=== PATIENT | female | born 1970 | race Caucasian/White ===

== ENCOUNTER 2021-05-20 13:13 | Emergency (ER) | payer BC, OTHER ==
[2021-05-20 14:02] LABS: #Basophils 0.1 thou/uL (0.0-0.2); #Monocytes 0.4 thou/uL (0.11-0.59); #Neutrophils 6.3 thou/uL (1.40-6.50); %Basophils 0.8 % (0.0-1.0); %Eosinophils 0.2 % (0.0-10.0); %Lymphocytes 12.6 % (21.0-51.0); %Monocytes 5.4 % (0.0-10.0); Mean Corpuscular HGB CONC 34.7 g/dL (32.0-36.0); Mean Corpuscular Volume 95.1 fL (78.0-98.0); Platelet Count 226 thou/uL (130-400); RBC Distribution Width 11.8 % (11.5-14.5); Red Blood Cell (RBC) Count 4.54 mill/uL (4.20-5.40); White Blood Cell (WBC) Count 7.7 thou/uL (4.8-10.8)
[2021-05-20] MEDS ORDERED: Ondansetron PF 4 MG/2 ML Vial ONE (14:05)
[2021-05-20 14:34] LABS: ALT (SGPT) 139 U/L (8-55); AST (SGOT) 144 U/L (5-34); Albumin 5.1 g/dL (3.5-5.0); Alkaline Phosphatase 75 U/L (40-110); Anion Gap 17 mmol/L (10-20); BUN (Urea Nitrogen) 15 mg/dL (9.8-20.1); Bilirubin, Total 0.5 mg/dL (0.2-1.2); Calc. Creatinine Clearance 0 mL/min (70-130); Calcium 10.7 mg/dL (7.8-10.44); Carbon Dioxide 25 mmol/L (22-29); Chloride 99 mmol/L (98-107); Globulin 3.8 g/dL (2.4-3.5); Glucose 136 mg/dL (70-105); Lipase 42 U/L (8-78); Potassium 3.8 mmol/L (3.5-5.1); Protein, Total 8.9 g/dL (6.0-8.3); Sodium 137 mmol/L (136-145)
== END 2021-05-20 15:30 | disposition home or self-care (01) ==
LOC: ERS 13:13
DX: R00.2 Palpitations (principal); R53.1 Weakness; Z87.891 Personal history of nicotine dependence
CPT/HCPCS: 36415; 71045; 80053; 83690; 84443; 84484; 85025; 85379; 96374; J2405

== ENCOUNTER 2021-10-25 12:21 | Inpatient (IN) | payer BC, OTHER ==
[2021-10-25 12:38] LABS: #Lymphocytes 2.6 thou/uL (1.20-3.40); #Monocytes 0.9 thou/uL (0.11-0.59); #Neutrophils 9.6 thou/uL (1.40-6.50); %Basophils 0.1 % (0.0-1.0); %Eosinophils 0.2 % (0.0-10.0); %Lymphocytes 19.7 % (21.0-51.0); %Monocytes 6.7 % (0.0-10.0); %Neutrophils 73.4 % (42.0-75.0); Hemoglobin 14.3 g/dL (12.0-16.0); Mean Corpuscular HGB CONC 32.1 g/dL (32.0-36.0); Mean Corpuscular Hemoglobin 32.3 pg (27.0-31.0); Mean Platelet Volume 6.8 fL (7.4-10.4); Platelet Count 165 thou/uL (130-400); RBC Distribution Width 12.5 % (11.5-14.5); Red Blood Cell (RBC) Count 4.43 mill/uL (4.20-5.40)
[2021-10-25] MEDS ORDERED: Ondansetron PF 4 MG/2 ML Vial ONE ×2 (12:49→13:14)
[2021-10-25] MEDS ORDERED: Lidocaine 4% Cream 5 GM TUBE w/ Tegaderm ONE (12:55)
[2021-10-25 13:07] LABS: Bacteria/HPF None Seen HPF (None Seen); Bilirubin Negative (Negative); Blood, Urine 3+ (Negative); Clarity Clear (Clear); Glucose, Urine (Dipstick) Normal (Negative); Ketone, Urine 10 mg/dL (Negative); Leukocyte Negative Leu/uL (Negative); Nitrite Negative (Negative); Protein, Urine (Dipstick) 30 mg/dL (Neg-Trace); RBC/HPF 0-3 HPF (0-3); Specific Gravity, Urine 1.012 (1.002-1.036); Squamous Epithelial None Seen HPF (0-3); Urobilinogen Normal mg/dL (Less than 2); WBC/HPF 0-3 HPF (0-3); pH, Urine 6.5 (5.0-9.0)
[2021-10-25 13:11] LABS: ALT (SGPT) 131 U/L (8-55); AST (SGOT) 176 U/L (5-34); Alkaline Phosphatase 78 U/L (40-110); Anion Gap 29 mmol/L (10-20); BUN (Urea Nitrogen) 12 mg/dL (9.8-20.1); Bilirubin, Total 0.5 mg/dL (0.2-1.2); Calc. Creatinine Clearance 0 mL/min (70-130); Calcium 9.5 mg/dL (7.8-10.44); Carbon Dioxide 17 mmol/L (22-29); Chloride 96 mmol/L (98-107); Globulin 3.5 g/dL (2.4-3.5); Glucose 126 mg/dL (70-105); Potassium 3.6 mmol/L (3.5-5.1); Protein, Total 8.5 g/dL (6.0-8.3); Sodium 138 mmol/L (136-145)
[2021-10-25 13:16] LABS: CK (CPK) 841 U/L (29-168); Magnesium 1.5 mg/dL (1.6-2.6)
[2021-10-25 13:19] LABS: BHCG - Serum Negative (NEGATIVE); Pregs Control Background? CLEAR/WHITE (CLR/WHITE); Pregs Control Bar Appear? YES (CONTROL BAR)
[2021-10-25 13:54] LABS: Thyroid Stimulating Hormone 0.8689 uIU/mL (0.35-4.94)
[2021-10-25] MEDS ORDERED: diphenhydrAMINE 12.5 MG/5 ML UDCUP ONE (15:07)
[2021-10-25] MEDS ORDERED: Metoclopramide HCl 10 MG/2 ML VIAL ONE (15:07)
[2021-10-25] MEDS ORDERED: diphenhydrAMINE 50 MG/ML VIAL ONE (15:09)
[2021-10-25] MEDS ORDERED: levETIRAcetam 500 MG/5 ML VIAL SLOW IVP SCH ×2 (15:45)
[2021-10-25] MEDS ORDERED: HYDROcodone/Acetaminophen 5/325 mg Tablet PO PRN (15:55)
[2021-10-25 15:58] LABS: Amphetamine Not Detected (NotDetected); Barbiturates Screen Not Detected (NotDetected); Benzodiazepine Screen Not Detected (NotDetected); Cocaine Metabolite Screen Not Detected (NotDetected); Methadone Not Detected (NotDetected); Methamphetamine Not Detected (NotDetected); Opiate Screen Not Detected (NotDetected); Oxycodone Screen Not Detected (NotDetected); Phencyclidine (PCP) Not Detected (NotDetected); THC/Cannabinoid Screen Not Detected (NotDetected); Tricyclic Screen Not Detected (NotDetected)
[2021-10-25] MEDS ORDERED: Lorazepam 2 MG/ML VIAL SLOW IVP PRN (16:15)
[2021-10-25 17:28] LABS: Lactic Acid 0.8 mmol/L (0.5-2.2)
[2021-10-25] MEDS: Dextrose 5 % And 0.9 % NaCl 1,000 ML IV SCH (17:31)
[2021-10-25 18:13] VITALS: BMI 20.8
[2021-10-25] MEDS ORDERED: clonazePAM 0.5 MG TAB PO PRN (18:19)
[2021-10-25] MEDS ORDERED: Magnesium 2 GM/50 ML(in water) 2 GM in Premix Bag 1 BAG IVPB SCH (18:30)
[2021-10-25] MEDS: Morphine 2 MG/ML VIAL SLOW IVP PRN (20:53)
[2021-10-25] MEDS: levETIRAcetam 500 MG/5 ML VIAL SLOW IVP SCH (21:45)
[2021-10-26 00:51] LABS: SARS-CoV-2 PCR by NAA Not Detected (NotDetected)
[2021-10-26] MEDS: Dextrose 5 % And 0.9 % NaCl 1,000 ML IV SCH ×2 (03:43→14:27)
[2021-10-26] MEDS: Morphine 2 MG/ML VIAL SLOW IVP PRN ×2 (05:22→15:48)
[2021-10-26 05:30] LABS: #Lymphocytes 0.9 thou/uL (1.20-3.40); #Monocytes 0.5 thou/uL (0.11-0.59); #Neutrophils 7.9 thou/uL (1.40-6.50); %Basophils 0.1 % (0.0-1.0); %Eosinophils 0.1 % (0.0-10.0); %Lymphocytes 9.3 % (21.0-51.0); %Monocytes 5.5 % (0.0-10.0); Hemoglobin 12.5 g/dL (12.0-16.0); Mean Corpuscular HGB CONC 33.9 g/dL (32.0-36.0); Mean Corpuscular Hemoglobin 33.1 pg (27.0-31.0); Mean Corpuscular Volume 97.8 fL (78.0-98.0); Mean Platelet Volume 6.8 fL (7.4-10.4); Platelet Count 129 thou/uL (130-400); RBC Distribution Width 12.6 % (11.5-14.5); Red Blood Cell (RBC) Count 3.77 mill/uL (4.20-5.40); White Blood Cell (WBC) Count 9.3 thou/uL (4.8-10.8)
[2021-10-26 05:46] LABS: Anion Gap 13 mmol/L (10-20); BUN (Urea Nitrogen) 7 mg/dL (9.8-20.1); Calc. Creatinine Clearance 99 mL/min (70-130); Calcium 8.1 mg/dL (7.8-10.44); Carbon Dioxide 23 mmol/L (22-29); Chloride 104 mmol/L (98-107); Glucose 110 mg/dL (70-105); Magnesium 2.2 mg/dL (1.6-2.6); Sodium 137 mmol/L (136-145)
[2021-10-26 05:55] LABS: Potassium 2.8 mmol/L (3.5-5.1)
[2021-10-26] MEDS ORDERED: Electrolyte Replacement Protocol FS PRN (06:15)
[2021-10-26 07:24] LABS: Magnesium 2.1 mg/dL (1.6-2.6)
[2021-10-26] MEDS: Potassium Chloride 20 MEQ TAB PO SCH ×2 (08:47→11:55)
[2021-10-26] MEDS: levETIRAcetam 500 MG/5 ML VIAL SLOW IVP SCH (08:48)
[2021-10-26] MEDS ORDERED: PRASTERONE 25 MG PO SCH (09:00)
[2021-10-26] MEDS ORDERED: clonazePAM 0.5 MG TAB PO SCH (09:00)
[2021-10-26] MEDS ORDERED: Folic Acid 1 MG TAB PO SCH (09:00)
[2021-10-26 15:44] VITALS: BP 108/63; TEMP 98.2
[2021-10-26 17:14] LABS: Potassium 4.2 mmol/L (3.5-5.1)
[2021-10-27] MEDS ORDERED: Venlafaxine XR 37.5 MG CAP PO SCH (09:00)
[2021-10-27] MEDS ORDERED: Progesterone,Micronized 100 MG CAP PO SCH (09:00)
== END 2021-10-26 19:33 | disposition home or self-care (01) | DRG 101 ==
LOC: ERS 12:21 → ERHOLD 15:32 → NEURO 16:54 → OBSVTOIN 10-26 12:39
PROVIDERS: ADMIT Emergency Medicine; ATTEND Emergency Medicine
DX: R56.1 Post traumatic seizures (principal); E87.2 Acidosis; R55 Syncope and collapse; Z20.822 Contact with and (suspected) exposure to COVID-19; G47.00 Insomnia, unspecified; F41.9 Anxiety disorder, unspecified; I49.3 Ventricular premature depolarization; E87.6 Hypokalemia; G93.89 Other specified disorders of brain; Z88.5 Allergy status to narcotic agent; Z87.891 Personal history of nicotine dependence; Z79.899 Other long term (current) drug therapy
CPT/HCPCS: 36415; 51701; 70450; 70551; 70552; 71045; 72125; 80048; 80053; 80306; 81003; 81015; 82533; 82550; 83605; 83735; 83880; 84146; 84443; 84484; 84703; 85025; 93005; 93306; 95712; 95819; 95957; 96361; 96374; 96375; 96376; G0378; J1200; J1953; J2270; J2405; J2765; J3475; J7042; Q0163; U0003; U0005

== ENCOUNTER 2022-08-01 11:58 | Outpatient (CLI) | payer BC, OTHER | END 2022-08-01 11:59 | disposition home or self-care (01) | LOC: BICRAD 11:58 | PROVIDERS: ATTEND Neurological Surgery | DX: M48.56XA Collapsed vertebra, not elsewhere classified, lumbar region, initial encounter for fracture (principal); M54.50 Low back pain, unspecified; M43.8X6 Other specified deforming dorsopathies, lumbar region | CPT/HCPCS: 72100 ==

== ENCOUNTER 2022-08-28 12:22 | Outpatient (CLI) | payer BC, OTHER | END 2022-08-28 12:23 | disposition home or self-care (01) | LOC: SCSRAD 12:22 | PROVIDERS: ATTEND Neurological Surgery | DX: M48.56XA Collapsed vertebra, not elsewhere classified, lumbar region, initial encounter for fracture (principal); M43.8X6 Other specified deforming dorsopathies, lumbar region | CPT/HCPCS: 72100 ==

== ENCOUNTER 2022-09-20 15:54 | Outpatient (CLI) | payer BC, OTHER | END 2022-09-20 15:55 | disposition home or self-care (01) | LOC: ULT 15:54 | PROVIDERS: ATTEND Otolaryngology Otolaryngic Allergy | DX: E04.1 Nontoxic single thyroid nodule (principal) | CPT/HCPCS: 76536 ==

== ENCOUNTER 2022-10-08 10:53 | Inpatient (IN) | payer BC, OTHER ==
[2022-10-08 11:44] LABS: Hemoglobin 15.2 g/dL (12.0-16.0); Mean Corpuscular HGB CONC 35.3 g/dL (32.0-36.0); Mean Corpuscular Hemoglobin 32.6 pg (27.0-31.0); Mean Corpuscular Volume 92.3 fl (78.0-98.0); Mean Platelet Volume 6.1 fL (7.4-10.4); Platelet Count 333 10x3/uL (130-400); Red Blood Cell (RBC) Count 4.65 mill/uL (4.20-5.40); White Blood Cell (WBC) Count 7.1 10x3/uL (4.8-10.8)
[2022-10-08] MEDS ORDERED: fentaNYL 50 mcg/mL 1 mL Vial ONE (11:49)
[2022-10-08] MEDS ORDERED: Ketorolac Tromethamine 30 MG/ML VIAL ONE (11:49)
[2022-10-08 11:58] LABS: ALT (SGPT) 23 U/L (8-55); AST (SGOT) 39 U/L (5-34); Albumin 4.5 g/dL (3.5-5.0); Alkaline Phosphatase 61 U/L (40-110); Anion Gap 17 mmol/L (10-20); BUN (Urea Nitrogen) 11 mg/dL (9.8-20.1); Bilirubin, Total 0.3 mg/dL (0.2-1.2); Calc. Creatinine Clearance 0 mL/min (70-130); Calcium 8.8 mg/dL (7.8-10.44); Carbon Dioxide 23 mmol/L (22-29); Chloride 105 mmol/L (98-107); Estimated GFR 104; Globulin 3.3 g/dL (2.4-3.5); Glucose 103 mg/dL (70-105); Potassium 4.3 mmol/L (3.5-5.1); Protein, Total 7.8 g/dL (6.0-8.3); Sodium 141 mmol/L (136-145)
[2022-10-08 12:16] LABS: Band 3 % (5-11); Lymphocytes 53 % (21-51); MDiff Complete? YES; Monocytes 3 % (0-10); Neutrophil 41 % (42-75); Platelet Morphology Comment Appears Adequate; RBC Morphology Normal
[2022-10-08 13:21] LABS: Bacteria/HPF 4+ HPF (None Seen); Bilirubin Negative (Negative); Blood, Urine Negative (Negative); Clarity Turbid (Clear); Glucose, Urine (Dipstick) Normal (Negative); Ketone, Urine Negative (Negative); Leukocyte 25 Leu/uL (Negative); Nitrite Negative (Negative); Protein, Urine (Dipstick) 10 mg/dL (Neg-Trace); RBC/HPF 0-3 HPF (0-3); Specific Gravity, Urine 1.012 (1.002-1.036); Squamous Epithelial 0-3 HPF (0-3); Urobilinogen Normal mg/dL (Less than 2)
[2022-10-08] MEDS ORDERED: Promethazine HCl 25 MG in Sodium Chloride 0.9% 50 ML IVPB SCH (15:00)
[2022-10-08 15:09] LABS: CK (CPK) 112 U/L (29-168); Lipase 16 U/L (8-78)
[2022-10-08] MEDS ORDERED: Iopamidol-370 76% 500 ML MDV (1 ML CHARGE) ONE (15:48)
[2022-10-08] MEDS: Acetaminophen 325 MG TAB PO PRN ×2 (17:46→20:51)
[2022-10-08] MEDS ORDERED: clonazePAM 0.5 MG TAB PO SCH (21:00)
[2022-10-08 21:14] VITALS: BMI 17.0
[2022-10-08] MEDS ORDERED: Ondansetron PF 4 MG/2 ML Vial IVP PRN (21:44)
[2022-10-08] MEDS ORDERED: Ondansetron ODT 4 MG TAB PO PRN (21:44)
[2022-10-08] MEDS ORDERED: Promethazine HCl 12.5 MG in Sodium Chloride 0.9% 50 ML IVPB SCH (22:15)
[2022-10-08] MEDS: Sodium Chloride 0.9% 1,000 ML IV SCH (22:46)
[2022-10-09] MEDS: Acetaminophen 650 MG Suppository PR PRN ×4 (01:30→15:05)
[2022-10-09 05:36] LABS: #Lymphocytes 1.8 thou/uL (1.20-3.40); #Monocytes 0.6 thou/uL (0.11-0.59); #Neutrophils 5.9 thou/uL (1.40-6.50); %Basophils 0.3 % (0.0-1.0); %Eosinophils 0.5 % (0.0-10.0); %Lymphocytes 21.7 % (21.0-51.0); %Monocytes 7.3 % (0.0-10.0); %Neutrophils 70.2 % (42.0-75.0); Hemoglobin 12.4 g/dL (12.0-16.0); Mean Corpuscular Hemoglobin 31.6 pg (27.0-31.0); Mean Platelet Volume 6.3 fL (7.4-10.4); Platelet Count 252 10x3/uL (130-400); RBC Distribution Width 11.9 % (11.5-14.5); Red Blood Cell (RBC) Count 3.93 mill/uL (4.20-5.40); White Blood Cell (WBC) Count 8.4 10x3/uL (4.8-10.8)
[2022-10-09 06:00] LABS: Anion Gap 15 mmol/L (10-20); BUN (Urea Nitrogen) 11 mg/dL (9.8-20.1); Calc. Creatinine Clearance 69 mL/min (70-130); Carbon Dioxide 24 mmol/L (22-29); Chloride 105 mmol/L (98-107); Estimated GFR 104; Glucose 103 mg/dL (70-105); Potassium 3.5 mmol/L (3.5-5.1); Sodium 140 mmol/L (136-145)
[2022-10-09] MEDS ORDERED: clonazePAM 0.5 MG TAB PO SCH (09:00)
[2022-10-09] MEDS: Venlafaxine XR 37.5 MG CAP PO SCH ×2 (09:18→09:20)
[2022-10-09] MEDS: Acetaminophen 325 MG TAB PO PRN (09:24)
[2022-10-09] MEDS: Sodium Chloride 0.9% 1,000 ML IV SCH (10:54)
[2022-10-09 15:54] VITALS: BP 112/72; TEMP 98.5
== END 2022-10-09 17:45 | disposition home or self-care (01) | DRG 86 ==
LOC: SUATTDRO 10:53 → ERS 10:53 → NEURO 15:02
PROVIDERS: ADMIT Internal Medicine; ATTEND Internal Medicine
DX: S06.6X1A Traumatic subarachnoid hemorrhage with loss of consciousness of 30 minutes or less, initial encounter (principal); M48.54XA Collapsed vertebra, not elsewhere classified, thoracic region, initial encounter for fracture; S02.0XXA Fracture of vault of skull, initial encounter for closed fracture; W19.XXXA Unspecified fall, initial encounter; S00.03XA Contusion of scalp, initial encounter; F41.9 Anxiety disorder, unspecified; E78.5 Hyperlipidemia, unspecified; F51.04 Psychophysiologic insomnia; Z88.5 Allergy status to narcotic agent; Z88.8 Allergy status to other drugs, medicaments and biological substances; Z79.899 Other long term (current) drug therapy; Y92.009 Unspecified place in unspecified non-institutional (private) residence as the place of occurrence of the external cause
CPT/HCPCS: 36416; 70450; 71045; 71275; 72125; 80048; 80053; 81003; 81015; 82550; 83690; 84146; 84484; 85025; 85379; 93005; 93306; 93880; J1885; J2405; J2550; J3010; J7050; Q0162; Q9967

== ENCOUNTER 2022-10-26 08:26 | Outpatient (CLI) | payer BC, OTHER | END 2022-10-26 08:27 | disposition home or self-care (01) | LOC: SCSCT 08:26 | PROVIDERS: ATTEND Neurological Surgery | DX: S06.6X0D Traumatic subarachnoid hemorrhage without loss of consciousness, subsequent encounter (principal); S22.010D Wedge compression fracture of first thoracic vertebra, subsequent encounter for fracture with routine healing; I67.82 Cerebral ischemia; G31.9 Degenerative disease of nervous system, unspecified; S02.91XD Unspecified fracture of skull, subsequent encounter for fracture with routine healing; S32.029D Unspecified fracture of second lumbar vertebra, subsequent encounter for fracture with routine healing | CPT/HCPCS: 70450; 72070 ==

== ENCOUNTER 2023-06-28 00:27 | Emergency (ER) | payer BC, OTHER ==
[2023-06-28 02:16] LABS: #Monocytes 0.6 thou/uL (0.11-0.59); #Neutrophils 4.5 thou/uL (1.40-6.50); %Basophils 0.2 % (0.0-1.0); %Lymphocytes 15.5 % (21.0-51.0); %Monocytes 9.1 % (0.0-10.0); %Neutrophils 74.9 % (42.0-75.0); Hematocrit 38.3 % (36.0-47.0); Hemoglobin 13.6 g/dL (12.0-16.0); Mean Corpuscular HGB CONC 35.5 g/dL (32.0-36.0); Mean Corpuscular Hemoglobin 31.2 pg (27.0-31.0); Mean Corpuscular Volume 87.8 fl (78.0-98.0); Mean Platelet Volume 8.6 fL (7.4-10.4); Platelet Count 156 10x3/uL (130-400); RBC Distribution Width 13.1 % (11.5-14.5); Red Blood Cell (RBC) Count 4.36 mill/uL (4.20-5.40); White Blood Cell (WBC) Count 6.1 10x3/uL (4.8-10.8)
[2023-06-28 02:43] LABS: Troponin I Less than 0.010 ng/mL (< 0.028)
[2023-06-28 05:03] LABS: ALT (SGPT) 149 U/L (8-55); AST (SGOT) 180 U/L (5-34); Albumin 4.2 g/dL (3.5-5.0); Alkaline Phosphatase 76 U/L (40-110); Anion Gap 19 mmol/L (10-20); BUN (Urea Nitrogen) 7 mg/dL (9.8-20.1); Bilirubin, Total 0.4 mg/dL (0.2-1.2); Calc. Creatinine Clearance 0 mL/min (70-130); Calcium 8.2 mg/dL (7.8-10.44); Carbon Dioxide 22 mmol/L (22-29); Chloride 97 mmol/L (98-107); Estimated GFR 106; Glucose 91 mg/dL (70-105); Potassium 3.1 mmol/L (3.5-5.1); Protein, Total 7.2 g/dL (6.0-8.3); Sodium 135 mmol/L (136-145)
[2023-06-28 05:18] LABS: Lactic Acid 3.9 mmol/L (0.5-2.2)
[2023-06-28 06:34] LABS: SARS-CoV-2 NAA Rapid Test Not Detected (NotDetected)
== END 2023-06-28 05:39 | disposition home or self-care (01) ==
LOC: ERS 00:27
DX: R06.02 Shortness of breath (principal); R11.2 Nausea with vomiting, unspecified; R19.7 Diarrhea, unspecified
CPT/HCPCS: 36415; 71045; 71275; 80053; 83605; 84443; 84484; 85025; 85379; 93005; 96360; 96361

== ENCOUNTER 2024-07-29 14:44 | Outpatient (CLI) | payer BC, OTHER | END 2024-07-29 14:45 | disposition home or self-care (01) | LOC: BICMAMMO 14:44 | PROVIDERS: ATTEND Internal Medicine | DX: M85.89 Other specified disorders of bone density and structure, multiple sites (principal) | CPT/HCPCS: 77080 ==